=== PATIENT | male | born 1965 | race Caucasian/White ===

== ENCOUNTER 2016-10-27 16:24 | Emergency (ER) | payer OTHER ==
[~2016-10-27] VITALS: Ht 185.4 cm; Wt 95.0 kg
[2016-10-27 16:33] VITALS: TEMP 36.7; Ht 185.4 cm; Wt 95.0 kg
[2016-10-27] MEDS ORDERED: OMEG10007 PO (16:41)
[2016-10-27] MEDS ORDERED: MULT-513 PO (16:41)
--- NOTE | 2016-10-27 17:44 | DIAGNOSTIC IMAGING REPORT ---
CHEST 2 VIEWS ROUTINE HISTORY: Possible lemon seed aspiration COMPARISON: None. FINDINGS: The lungs are clear. Cardiac silhouette is normal in size. No pleural effusions. No pneumothorax. IMPRESSION: No acute process. Electronically signed by: Quinton Goodwin M.D. 10/27/2016 5:43 PM Dictated Date/Time: 10/27/2016 5:42 PM
[2016-10-27 18:20] VITALS: BP 154/89; PULSE 74; O2SAT 99
--- NOTE | 2016-10-27 20:06 | EMERGENCY ROOM VISIT NOTE ---
History First contact with patient: 16:31 Chief Complaint: FOREIGNBODY ANY BODY PART Stated Complaint: INHALED A LEMON SEED History of Present Illness The patient is a 51 year old male who presents to the Emergency Room with complaints of possibly aspirating a lemon seed while drinking. The patient reports that he coughed for a few minutes, then the coughing resolved. He reports mild throat discomfort. He denies any shortness of breath, wheezing or chest pain. Review of Systems 10 system review was performed and was negative except for pertinent positives and negatives as indicated in history of present illness Past Medical/Surgical History Medical Problems: (1) No significant past medical history (2) No significant past medical history Surgical Problems: (1) No history of previous surgery (2) No history of previous surgery Family History Unremarkable Social History Smoking Status: Former Smoker Alcohol Use: occasionally Marital Status: Housing Status: lives with family Occupation Status: employed Current/Historical Medications Scheduled Fish Oil ([place]-3), 1 CAP PO DAILY Multivitamins/Minerals (Mvi With Minerals), 1 TAB PO DAILY Physical Exam Vital Signs Date Time Temp Pulse Resp B/P (MAP) Pulse Ox O2 Delivery O2 Flow Rate FiO2 10/27/16 18:20 74 20 154/89 99 10/27/16 16:33 36.7 70 20 163/93 97 Room Air Physical Exam CONSTITUTIONAL: Healthy and well nourished. Alert and oriented X 3 with positive affect. Patient does not appear in any acute respiratory distress. HEENT: Normocephalic, atraumatic. Pupils equal, round and reactive. No subconjunctival hemorrhage or rhinorrhea. OROPHARYNX: No obvious foreign body, posterior pharyngeal erythema or edema. NECK: Full active range of motion without discomfort. RESPIRATORY: Clear to auscultation bilaterally with no wheezing, crackles, rhonchi or stridor. CARDIOVASCULAR: Regular rate and rhythm with no murmurs, rubs or gallops. GASTROINTESTINAL: Bowel sounds present in all quadrants. No epigastric tenderness to palpation. INTEGUMENTARY: No rash or other significant dermatologic conditions noted. HEMATOLOGIC: No ecchymosis or petechiae. NEUROLOGIC: No focal neurologic deficits noted. Medical Decision & Procedures ER Provider Diagnostic Interpretation: My interpretation of chest x-rays does not show any obvious consolidations, pneumothorax or other acute findings. Radiologist report is as follows: CHEST 2 VIEWS ROUTINE HISTORY: Possible lemon seed aspiration COMPARISON: None. FINDINGS: The lungs are clear. Cardiac silhouette is normal in size. No pleural effusions. No pneumothorax. IMPRESSION: No acute process. ED Course Patient history and physical exam were performed. Nurse's notes were reviewed. Vital signs were reviewed, showing an elevated blood pressure. The patient was encouraged to follow-up with his PCP for blood pressure recheck. The patient does not appear in any acute distress. A chest x-ray does not show any normal findings. The patient was instructed to follow-up with his PCP for recheck in next 24-48 hours. He was instructed to seek further emergent reevaluation for any developing cough, shortness of breath, fever or other concerning symptoms. The patient was happy with plan of care, and voiced understanding of all discharge instructions. Medical Decision Blood Pressure Screening Patient's blood pressure: Elevated blood pressure Blood pressure disposition: Referred to PCP Impression Primary Impression: Evaluation for possible aspirated foreign body Additional Impression: Elevated blood pressure reading Departure Information Referrals No Doctor, Assigned (PCP) Patient Instructions My [facility] Health Problem Qualifiers
== END 2016-10-27 18:21 | disposition home or self-care (01) ==
LOC: C.EDB 16:26 → C.EDD 18:21
DX: R09.89 Other specified symptoms and signs involving the circulatory and respiratory systems (principal); R03.0 Elevated blood-pressure reading, without diagnosis of hypertension; Z87.891 Personal history of nicotine dependence